=== PATIENT | female | born 1970 ===

== ENCOUNTER 2017-04-14 17:48 | Emergency (ER) | payer SELFPAY ==
[2017-04-14 17:51] VITALS: BP 138/68; PULSE 68; RESP 16; TEMP 98.1; O2SAT 99
== END 2017-04-14 20:56 | disposition left against medical advice (07) ==
LOC: NED 17:48
DX: H57.10 Ocular pain, unspecified eye (principal); Z53.21 Procedure and treatment not carried out due to patient leaving prior to being seen by health care provider
CPT/HCPCS: 99281